=== PATIENT | female | born 1990 | race Asian ===

== ENCOUNTER 2024-06-21 04:12 | Emergency (ER) | payer OTHER ==
[~2024-06-21] VITALS: Ht 162.6 cm; Wt 68.0 kg
[2024-06-21 04:39] VITALS: BP_SYST 124; PULSE 81; RESP 18; TEMP 98.1; O2SAT 98
[2024-06-21 04:55] VITALS: BP_SYST 124; PULSE 81; RESP 18; TEMP 98.1; O2SAT 98
== END 2024-06-21 04:55 | disposition home or self-care (01) ==
LOC: SED 04:12
DX: S90.812A Abrasion, left foot, initial encounter (principal); V89.2XXA Person injured in unspecified motor-vehicle accident, traffic, initial encounter; Y93.89 Activity, other specified; Y92.89 Other specified places as the place of occurrence of the external cause; Y99.8 Other external cause status
CPT/HCPCS: 99283